=== PATIENT | male | born 1960 | race Caucasian/White ===

== ENCOUNTER 2019-04-14 13:10 | Emergency (ER) | payer OTHER ==
[~2019-04-14] VITALS: Ht 198.1 cm; Wt 96.6 kg
[~2019-04-14 13:10] MED LIST: ATENOLOL50 MG PO; Aspirin PO; PROTONIX40 MG/ML PO; REGLAN10 MG PO
--- OUTSIDE RECORDS SUMMARY | 2019-04-14 13:16 | XMS REPORT ---
Author [facility] Address Unknown Phone Unavailable Care Team Providers Care Teaching Aide Name Role Phone Unavailable Unavailable Payers Payer Name Policy Type Policy Number Effective Date Expiration Date Problems This patient has no known problems. Allergies, Adverse Reactions, Alerts Allergy Name Allergy Type Status Severity Reaction(s) Onset Date Inactive Date Treating Clinician Comments Penicillins DA Active U 2014-11-30 00:00:00 Medications This patient has no known medications. 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 IMPRESSION: Normal chest x-ray. at 2116 Reported and signed by: Cain Lombardi M.D. CC: Steve Velazco MD Technologist: TAYLOR WHITNEY RT(R),CT Trnscrpt Data: 11/10/2018 (2115) Pavithra Orig Print D/T: S: 11/10/2018 (2118) PAGE 1 Signed Report
[2019-04-14] MEDS ORDERED: ONDANSETRON HCL INJ 2MG/ML 2ML 2 MG/ML VIAL IV STA (13:21)
[2019-04-14] MEDS ORDERED: SODIUM CHLORIDE 0.9% 1000ML 1,000 ML IV SCH (13:30)
[2019-04-14] MEDS ORDERED: MORPHINE SULFATE INJ 4 MG/ML INJ 1ML ONE ×2 (13:39→15:28)
[2019-04-14] MEDS ORDERED: KETOROLAC TROMETHAMINE 30 MG/ML VIAL IV ONE (14:00)
--- NOTE | 2019-04-14 14:19 | Diagnostic Imaging Report ---
EXAM: CT Abdomen and Pelvis WITHOUT intravenous contrast INDICATION: Flank pain, history of renal calculi COMPARISON: None. TECHNIQUE: Abdomen and pelvis were scanned utilizing a multidetector helical scanner from the lung base to the pubic symphysis without administration of IV contrast. Coronal and sagittal reformations were obtained. IV CONTRAST: None ORAL CONTRAST: None COMPLICATIONS: None RADIATION DOSE: Total DLP: 821.47 mGy*cm Dose modulation, iterative reconstruction, and/or weight based adjustment of the mA/kV was utilized to reduce the radiation dose to as low as reasonably achievable. FINDINGS: LOWER THORAX: Minimal bibasilar dependent subsegmental atelectasis. 5 mm right lower lobe calcified granuloma. Scattered atherosclerotic calcifications of the right coronary artery. HEPATOBILIARY: No focal liver lesion. Status post cholecystectomy. SPLEEN: No splenomegaly. PANCREAS: No focal masses or ductal dilatation. ADRENALS: No adrenal nodules. KIDNEYS/URETERS: No hydronephrosis. There is a left extrarenal pelvis. 2 mm nonobstructive left upper pole renal calculus. No ureteral calculi. PELVIC ORGANS/BLADDER: The bladder appears unremarkable. No bladder calculi identified. PERITONEUM / RETROPERITONEUM: No free air or fluid. LYMPH NODES: No lymphadenopathy. VESSELS: Unremarkable. GI TRACT: No abnormal bowel wall thickening or bowel distention. The appendix is mildly prominent and demonstrates fatty changes. No secondary associated findings of appendicitis. BONES AND SOFT TISSUES: No fracture or dislocation. Moderate degenerative changes of the lower lumbar spine. IMPRESSION: 2 mm nonobstructive left upper pole renal calculus. No hydronephrosis. Signed by: Saundra Ramesh MD on 04/14/2019 2:16 PM
[2019-04-14] MEDS ORDERED: MORPHINE SULFATE INJ 4 MG/ML INJ 1ML IV ONE (14:30)
[2019-04-14] MEDS ORDERED: MORPHINE SULFATE 2 MG/ML SYR 1ML IV STA (15:32)
== END 2019-04-14 16:00 | disposition home or self-care (01) ==
LOC: FSED 13:10
DX: R10.9 Unspecified abdominal pain (principal); N20.0 Calculus of kidney
CPT/HCPCS: 74176; 80053; 81003; 85025; 99284; J1885; J2270 ×2; J2405

== ENCOUNTER 2025-04-06 15:48 | Emergency (ER) | payer MEDICARE, OTHER ==
[~2025-04-06] VITALS: Ht 198.1 cm; Wt 94.3 kg
[2025-04-06] MEDS: LACTATED RINGER'S 1,000 ML INJ ONE (17:11)
[2025-04-06 17:38] LABS: BASOPHILS % 0.4 % (0.0-1.0); EOSINOPHILS % 2.5 % (0.0-6.0); LYMPHOCYTES % 15.1 % (18.0-39.1); MONOCYTES % 10.1 % (4.4-11.3); NEUTROPHILS % 71.3 % (38.7-80.0); RED CELL DISTRIBUTION WIDTH 13.2 % (11.7-14.4)
[2025-04-06 18:08] LABS: EST GLOMERULAR FILTRATION RATE 41.0 ML/MIN (>=60)
[2025-04-06 18:48] VITALS: PULSE 67; RESP 13; TEMP 97.6
[2025-04-06] MEDS ORDERED: ANTIVERT25 M1 PO (18:54)
[2025-04-06] MEDS: ACETAMINOPHEN 325 MG TAB PO ONE (18:59)
[2025-04-06 19:03] VITALS: BP 138/94; PULSE 67; RESP 13; TEMP 97.6; O2SAT 100
== END 2025-04-06 19:20 | disposition home or self-care (01) ==
LOC: ER 15:50
DX: R42 Dizziness and giddiness (principal); W01.0XXA Fall on same level from slipping, tripping and stumbling without subsequent striking against object, initial encounter; Y92.89 Other specified places as the place of occurrence of the external cause; I10 Essential (primary) hypertension; K21.9 Gastro-esophageal reflux disease without esophagitis; M10.9 Gout, unspecified; Z87.442 Personal history of urinary calculi
CPT/HCPCS: 36415; 70450; 71045; 80053; 82550; 84484; 85025; 93005; 99284; J7121